=== PATIENT | female | born 1965 | race Caucasian/White ===

== ENCOUNTER 2025-03-19 01:00 | Inpatient (IN) | payer MEDICAID ==
[~2025-03-19] VITALS: Ht 172.7 cm; Wt 71.8 kg
[2025-03-19 02:01] LABS: PLATELET COUNT (AUTO) 271 K/uL (150-450); RED BLOOD CELL COUNT(AUTO) 4.06 MIL/uL (4.00-5.20); RED CELL DISTRIBUTION WIDTH 13.6 % (11.5-14.5); WHITE BLOOD COUNT (AUTO) 11.8 K/uL (4.5-11.0)
[2025-03-19 02:12] LABS: CALCIUM, TOTAL 9.0 mg/dL (8.8-10.5); CREATININE 0.91 mg/dL (0.60-1.30); GLOMERULAR FILTR. RATE CALC > 60 mL/min (>60); GLUCOSE,RANDOM 141 mg/dL (70-110); SODIUM SERUM 139 mmol/L (136-145); UREA NITROGEN, BLOOD 16 mg/dL (7-18)
[2025-03-19 02:48] LABS: TROPONIN I-HIGH SENSITIVITY Less Than 4 ng/L (<51)
[2025-03-19 03:25] LABS: APPEARANCE,URINE HAZY (CLEAR); GLUCOSE, URINE (UA) NEGATIVE (NEGATIVE); LEUKOCYTE ESTERASE ,URINE MODERATE (NEGATIVE); NITRATE,URINE NEGATIVE (NEGATIVE); OCCULT BLOOD,URINE MODERATE (NEGATIVE); SPECIFIC GRAVITIY, URINE 1.030 (1.003-1.030)
[2025-03-19 03:54] LABS: SQUAMOUS EPITHELIAL CELL,UR Moderate /LPF (None Seen)
[2025-03-19] MEDS: ONDANSETRON HCL 4 MG/2 ML VIAL IVP ONE ×2 (04:44→07:00)
[2025-03-19] MEDS: KETOROLAC TROMETHAMINE 30 MG/ML VIAL IVP ONE (04:44)
[2025-03-19 04:47] LABS: ASPARTATE AMINOTRANSFERASE 196.0 U/L (15-37); TOTAL PROTEIN, SERUM 8.1 g/dL (6.4-8.2)
[2025-03-19] MEDS: MORPHINE SULFATE 4 MG/ML SYRINGE IVP ONE (07:00)
[2025-03-19] MEDS: SODIUM CHLORIDE 0.9% 1,000 ML IV ONE (09:45)
[2025-03-19] MEDS: CefTRIAXone 1 GM/DEXTROSE 50 ML IV ONE (09:55)
[2025-03-19] MEDS ORDERED: MEPERIDINE-PF 25 MG/ML VIAL IVP PRN (10:30)
[2025-03-19] MEDS: BUPIVACAINE 0.25%/EPI 1:200,000/PF 30 ML VIAL ONE (11:00)
[2025-03-19] MEDS: KETOROLAC TROMETHAMINE 15 MG/ML VIAL IVP SCH (12:30)
[2025-03-19] MEDS ORDERED: FentaNYL CITRATE PF 100 MCG/2 ML VIAL ONE (13:11)
[2025-03-19] MEDS: FentaNYL CITRATE PF 100 MCG/2 ML VIAL IVP PRN (13:17)
[2025-03-19] MEDS ORDERED: ONDANSETRON HCL 4 MG/2 ML VIAL ONE (13:37)
[2025-03-19 14:00] VITALS: BP 106/56; PULSE 58; RESP 18; TEMP 97.2; O2SAT 98
[2025-03-19] MEDS: *CLINICAL-LEVOFLOXACIN IVPB DOSING CLINICAL ONE (14:12)
[2025-03-19] MEDS ORDERED: ZOLPIDEM TARTRATE 5 MG TABLET PO PRN (14:15)
[2025-03-19] MEDS ORDERED: MORPHINE SULFATE 2 MG/ML SYRINGE IVP PRN (14:15)
[2025-03-19] MEDS ORDERED: BISACODYL 10 MG RECTAL RECTAL SUPPOSITORY PR PRN (14:15)
[2025-03-19] MEDS: ONDANSETRON HCL 4 MG/2 ML VIAL IVP PRN (14:37)
[2025-03-19] MEDS: HEPARIN SODIUM,PORCINE 5,000 UNITS/ML VIAL SQ SCH (16:11)
[2025-03-19] MEDS: LEVOFLOXACIN 750 MG/D5% WATER 150 ML IV SCH (16:11)
[2025-03-19 17:00] VITALS: BP 100/59; PULSE 63; RESP 18; TEMP 97.9; O2SAT 93
[2025-03-19 17:30] VITALS: BP 104/54
[2025-03-19] MEDS: OXYGEN THERAPY IH SCH (20:00)
[2025-03-19 20:54] VITALS: BP 101/62; PULSE 65; RESP 18; TEMP 97.7; O2SAT 98
[2025-03-19] MEDS: DOCUSATE SODIUM 100 MG CAPSULE PO SCH (21:00)
[2025-03-20] VITALS: BP 104/64; PULSE 64; RESP 18; TEMP 97.7; O2SAT 98
[2025-03-20 05:02] VITALS: BP 99/53; PULSE 55; RESP 18; TEMP 98.4; O2SAT 97
[2025-03-20 06:27] LABS: PLATELET COUNT (AUTO) 216 K/uL (150-450); RED BLOOD CELL COUNT(AUTO) 3.50 MIL/uL (4.00-5.20); RED CELL DISTRIBUTION WIDTH 13.7 % (11.5-14.5); WHITE BLOOD COUNT (AUTO) 8.5 K/uL (4.5-11.0)
[2025-03-20 06:40] LABS: CALCIUM, TOTAL 7.8 mg/dL (8.8-10.5); CREATININE 0.70 mg/dL (0.60-1.30); GLOMERULAR FILTR. RATE CALC > 60 mL/min (>60); GLUCOSE,RANDOM 118 mg/dL (70-110); SODIUM SERUM 140 mmol/L (136-145); UREA NITROGEN, BLOOD 12 mg/dL (7-18)
[2025-03-20] MEDS: PANTOPRAZOLE SODIUM 40 MG DR TABLET PO SCH (08:10)
[2025-03-20] MEDS: ACETAMINOPHEN 325 MG TABLET PO PRN (08:15)
[2025-03-20] MEDS ORDERED: KETOROLAC TROMETHAMINE 60 MG/2 ML VIAL IM ONE (09:49)
[2025-03-20] MEDS ORDERED: ONDANSETRON HCL 4 MG/2 ML VIAL IVP ONE (09:49)
[2025-03-20] MEDS ORDERED: ACETAMINOPHEN/ISO-OSM 1000 MG/100 ML BOTTLE IV ONE (09:49)
[2025-03-20] MEDS ORDERED: DEXAMETHASONE SOD PHOS 4 MG/ML VIAL IVP ONE (09:49)
[2025-03-20] MEDS ORDERED: SUGAMMADEX SODIUM 200 MG/2 ML VIAL IVP ONE (09:49)
[2025-03-20] MEDS ORDERED: LIDOCAINE/PF 2% 5 ML SYRINGE IVP ONE (09:49)
[2025-03-20] MEDS ORDERED: PROPOFOL 1% 20 ML VIAL IVP ONE (09:49)
[2025-03-20] MEDS ORDERED: ROCURONIUM BROMIDE 10 MG/ML 5 ML VIAL IV ONE (09:49)
[2025-03-20 10:16] VITALS: BP 113/65; PULSE 58; RESP 18; TEMP 98.2; O2SAT 96
[2025-03-20] MEDS ORDERED: BISACODYL 10 MG RECTAL RECTAL SUPPOSITORY PR PRN (12:15)
[2025-03-20 15:47] VITALS: BP 105/69; PULSE 60; RESP 18; TEMP 98.6; O2SAT 95
[2025-03-20] MEDS: HYDROCODONE/ACETAMINOPHEN 5-325 MG TABLET PO PRN (16:32)
[2025-03-20 20:00] VITALS: BP 111/66; PULSE 63; RESP 18; TEMP 97.3; O2SAT 97
[2025-03-21 05:06] VITALS: BP 120/77; PULSE 58; RESP 19; TEMP 98.4; O2SAT 98
[2025-03-21 06:45] LABS: PLATELET COUNT (AUTO) 219 K/uL (150-450); RED BLOOD CELL COUNT(AUTO) 3.54 MIL/uL (4.00-5.20); RED CELL DISTRIBUTION WIDTH 14.1 % (11.5-14.5); WHITE BLOOD COUNT (AUTO) 5.7 K/uL (4.5-11.0)
[2025-03-21 06:57] LABS: CALCIUM, TOTAL 8.3 mg/dL (8.8-10.5); CREATININE 0.94 mg/dL (0.60-1.30); GLOMERULAR FILTR. RATE CALC > 60 mL/min (>60); GLUCOSE,RANDOM 98 mg/dL (70-110); SODIUM SERUM 143 mmol/L (136-145); UREA NITROGEN, BLOOD 12 mg/dL (7-18)
[2025-03-21 08:10] VITALS: BP 130/89; PULSE 98; RESP 20; TEMP 98.8; O2SAT 99
[2025-03-21] MEDS: MAGNESIUM HYDROXIDE SUSPENSION 30 ML UDCUP PO PRN (08:36)
[2025-03-21] MEDS: MINERAL OIL 133 ML ENEMA PR ONE (10:01)
[2025-03-21 20:11] VITALS: BP 120/58; PULSE 60; RESP 20; TEMP 97.7; O2SAT 98
[2025-03-22 03:57] VITALS: BP 108/76; PULSE 69; RESP 18; TEMP 98.1; O2SAT 96
[2025-03-22 06:30] VITALS: BP 117/73; PULSE 67; RESP 18; O2SAT 99
[2025-03-22 07:12] LABS: PLATELET COUNT (AUTO) 221 K/uL (150-450); RED BLOOD CELL COUNT(AUTO) 3.58 MIL/uL (4.00-5.20); RED CELL DISTRIBUTION WIDTH 13.8 % (11.5-14.5); WHITE BLOOD COUNT (AUTO) 5.5 K/uL (4.5-11.0)
[2025-03-22 07:22] LABS: CALCIUM, TOTAL 8.4 mg/dL (8.8-10.5); CREATININE 0.76 mg/dL (0.60-1.30); GLOMERULAR FILTR. RATE CALC > 60 mL/min (>60); GLUCOSE,RANDOM 102 mg/dL (70-110); SODIUM SERUM 142 mmol/L (136-145); UREA NITROGEN, BLOOD 13 mg/dL (7-18)
[2025-03-22 08:00] VITALS: BP 107/49; PULSE 67; RESP 20; TEMP 97.5; O2SAT 100
[2025-03-22] MEDS ORDERED: AMOX1TAB15 PO (11:10)
[2025-03-22] MEDS ORDERED: LACT10SO85 PO (11:10)
[2025-03-22] MEDS ORDERED: BISA10SU11 PR (11:10)
== END 2025-03-22 15:15 | disposition home or self-care (01) | DRG 263 ==
LOC: EMS 01:05 → EDH 09:34 → 6S 14:04
PROVIDERS: ADMIT Internal Medicine; ATTEND Internal Medicine
PROC: 0FT44ZZ Resection of Gallbladder, Percutaneous Endoscopic Approach (ICD-10-PCS; principal; 2025-03-19 11:00)
DX: K80.00 Calculus of gallbladder with acute cholecystitis without obstruction (principal); E66.3 Overweight; I10 Essential (primary) hypertension; K59.00 Constipation, unspecified; N39.0 Urinary tract infection, site not specified; R74.01 Elevation of levels of liver transaminase levels; Z68.24 Body mass index [BMI] 24.0-24.9, adult; Z82.49 Family history of ischemic heart disease and other diseases of the circulatory system
CPT/HCPCS: 76700; 80048; 80076; 81001; 83690; 84484; 85025; 87040; 87086; 88304; 96374; 96375; 97110; 97116; 97162; 97530; 97535; 99285; J0131; J0696; J1100; J1644; J1885; J1956; J2270; J2405; J2704; J3010; J3490; J7030